=== PATIENT | female | born 1985 | race Caucasian/White ===

== ENCOUNTER 2022-07-30 12:19 | Emergency (ER) | payer MEDICARE, BC ==
[~2022-07-30] VITALS: Ht 162.6 cm; Wt 78.8 kg
[2022-07-30 13:14] LABS: BASOPHILS % (AUTO) 0.3 % (0-1); EOSINOPHILS # (AUTO) 0.1 X10'3 (0-0.9); EOSINOPHILS % (AUTO) 0.8 % (0-6); HEMATOCRIT 41.5 % (35.0-45.0); LYMPHOCYTES % (AUTO) 16.3 % (21-51); MEAN CORPUSCULAR HEMOGLOBIN 28.6 PG (27.0-31.0); MEAN CORPUSCULAR HGB CONC 33.8 g/dL (33.0-36.5); MEAN CORPUSCULAR VOLUME 84.9 FL (78-98); MEAN PLATELET VOLUME 9.5 FL (7.4-10.4); MONOCYTES # (AUTO) 0.9 X10'3 (0-0.9); MONOCYTES % (AUTO) 7.8 % (2-12); NEUTROPHILS % (AUTO) 74.8 % (42-75); PLATELET COUNT 228 X10'3 (140-440); RED CELL DISTRIBUTION WIDTH 13.4 % (11.5-14.5)
[2022-07-30 13:30] LABS: ALANINE AMINOTRANSFERASE 228 U/L (12-78); ALBUMIN/GLOBULIN RATIO 1.3 (1.1-1.5); ALKALINE PHOSPHATASE 82 IU/L (46-116); ANION GAP 11 (8-16); ASPARTATE AMINO TRANSFERASE 79 U/L (10-37); BILIRUBIN,TOTAL 0.5 MG/DL (0.1-1.0); BLOOD UREA NITROGEN 10 MG/DL (7-18); BUN/CREATININE RATIO 14.7 (10.0-20.0); CALCIUM 8.8 MG/DL (8.5-10.1); CHLORIDE 104 MMOL/L (99-107); CREATININE 0.68 MG/DL (0.40-0.90); GLUCOSE 92 MG/DL (70-104); POTASSIUM 3.5 MMOL/L (3.5-5.1); SODIUM 137 MMOL/L (135-145); TOTAL CARBON DIOXIDE 22.4 MMOL/L (24-32); TOTAL PROTEIN 7.2 G/DL (6.4-8.2); eGFR > 90 ML/MIN
[2022-07-30] MEDS ORDERED: ondansetron 4mg rapidly disintigrating tab PO ONE (15:05)
[2022-07-30] MEDS ORDERED: morphine 4 MG/ML inj SYRINge IM ONE (15:05)
[2022-07-30 15:45] LABS: D-DIMER 0.48 MG/L FEU (0-0.50)
[2022-07-30] MEDS ORDERED: OXYC-149 PO (15:48)
[2022-07-30] MEDS ORDERED: HYDROmorphone 1 mg/ml syringe IV ONE (16:00)
--- NOTE | 2022-07-30 16:25 | NUR ---
US to pt bedside at this time
[2022-07-30] MEDS ORDERED: methylPREDNISolone sod succ 125mg/2ml vial IV ONE (16:50)
[2022-07-30] MEDS ORDERED: diphenhydrAMINE 50 mg/ml inj IV ONE (16:55)
[2022-07-30] MEDS ORDERED: iohexol 300mg/ml 100ml inj. ONE (17:13)
[2022-07-30] MEDS ORDERED: OXYC-150 PO (18:12)
[2022-07-30] MEDS ORDERED: HYDROmorphone inj. 0.5 MG/0.5 ML DISP.SYRIN IV ONE (18:15)
[2022-07-30] MEDS ORDERED: ondansetron/PF 4mg/2ml inj IV ONE (18:15)
[2022-07-30 19:00] VITALS: BP 115/80
== END 2022-07-30 19:04 | disposition home or self-care (01) ==
LOC: ER 12:20
DX: R07.81 Pleurodynia (principal); R05.9 Cough, unspecified
CPT/HCPCS: 36415; 71046; 71260; 74177; 76700; 80053; 83605; 83880; 85025; 85379; 87040; 96372; 96374; 96375; 96376; 99285; J1170; J1200; J2270; J2405; J2930; J3490; Q9967